=== PATIENT | male | born 1955 | race Caucasian/White ===

== ENCOUNTER 2020-06-13 10:10 | Outpatient (CLI) | payer MEDICARE, MEDICAID, SELFPAY ==
--- NOTE | ~2020-06-13 | XR_ITS ---
EXAMINATION: XR chest 2V EXAM DATE: 06/13/2020 10:46 INDICATION: CHEST PAIN with breathing in, SOB on L side, hx asthma, COPD . TECHNIQUE: Frontal and lateral projections of the chest obtained and reviewed. Comparison is made to prior examination from 03/13/2013. FINDINGS: The lungs are clear. There are no pleural effusions. The cardiomediastinal silhouette is within normal limits. There is no pneumothorax suspected. The bones and soft tissues are unremarkab le. IMPRESSION: No acute cardiopulmonary findings. Reviewed, dictated and finalized at location A. [employer]
== END 2020-06-13 10:11 | disposition home or self-care (01) ==
PROVIDERS: PCP Internal Medicine; Visit Provider Internal Medicine
DX: R07.9 Chest pain, unspecified (principal)
CPT/HCPCS: 71046

== ENCOUNTER 2024-01-15 03:57 | Emergency (ER) | payer OTHER, SELFPAY ==
--- NOTE | ~2024-01-15 | XR_ITS ---
XR hand LT min 3V DATE: 01/15/2024 04:11 INDICATION: Left hand injury. Pain at second-fourth metacarpophalangeal joints TECHNIQUE: 3 views COMPARISON: None FINDINGS: There is soft tissue swelling at a proximal aspect of the second through fourth digits. No fracture or dislocation, periosteal reaction or bone destruction is detected. IMPRESSION: Soft tissue swelling of second through fourth digits Reviewed, dictated and finalized at location A.
[2024-01-15 04:00] VITALS: BP 193/122; PULSE 64; RESP 20; TEMP 36.6; O2SAT 100
--- NOTE | 2024-01-15 04:05 | ED.UPPEXIN ---
HPI - Extremity Injury (Upper) General Chief Complaint: Extremity Injury, Upper Stated Complaint: Left hand Injury Time Seen by Provider: 01/15/24 04:00 Source: patient Mode of arrival: ambulatory Limitations: no limitations History of Present Illness HPI narrative: patient is a 60-year-old male with significant past medical history that presents today with a left hand pain. Patient states that he fell into a wall on his hand. States has been hurting ever since it is erythematous and swollen on left hand. He does have so have a history of gout flare-ups as and takes allopurinol for this. It does resemble some cellulitis also could be a gout flare, or a possible fracture of the left hand. MD complaint: injury to: left Onset (ago): day(s) Other Extremity Injury: Left: hand Handedness: right Place: home Severity: mild Severity scale (1-10): 6 Relieving factors: none Exacerbating factors: movement of extremity Context: fall and direct blow Associated symptoms: denies other symptoms Related Data Home Medications Medication Instructions Recorded Confirmed Unable to Obtain Home Medications 01/15/24 01/15/24 Allergies Allergy/AdvReac Type Severity Reaction Status Date / Time No Known Allergies Allergy Unknown Unverified 10/29/21 13:24 Review of Systems Review of Systems: All systems reviewed & are unremarkable except as noted in HPI and below Constitutional: Constitutional: Reports as per HPI Eyes: Eyes: Reports no additional eye complaints ENT: Reports system reviewed and no additional complaints, except as documented Cardiovascular: Cardiovascular: Reports no additional cardiovascular complaints Respiratory: Respiratory: Reports no additional respiratory complaints Gastrointestinal: Gastrointestinal: Reports no additional gastrointestinal complaints Musculoskeletal: Musculoskeletal: Reports arthralgias and Reports joint swelling Comments: Left hand Integumentary/Breasts: Skin/Breast: Reports system reviewed and no additional complaints, except as docu Neurologic: Reports system reviewed and no additional complaints, except as documented Psychiatric: Psychiatric: Reports no additional psychiatric complaints Endocrine: Endocrine: Reports no additional endocrine complaints Hematologic/Lymphatic: Hematologic/Lymphatic: Reports no additional hematologic/lymphatic complaints Allergic/Immunologic: Allergic/Immunologic: Reports no additional allergic/immunologic complaints Exam Const: General: healthy appearing Nutritional Appearance: well nourished Orientation/consciousness: patient oriented x3 HENMT: Head: normal to inspection Ears: external ears normal Face/Nose/Sinus: Normal external nose present Face and sinus: normal facial exam Eyes: Conjunctivae: conjunctivae normal Pupils: Equal, round and reactive pupils present EOM: EOMs intact bilaterally Neck: Neck: normal visual inspection Chest: Chest palpation & inspection: normal inspection of the chest Resp: Effort & Inspection: normal respiratory effort Auscultation: clear to auscultation bilaterally Cardio: Rate: regular rate Rhythm: regular rhythm GI: GI Palp: Yes Soft to palpation Back/Spine/Pelvis: Back: no CVA tenderness Skin: Other: left hand erythematous and edematous Neuro: General: patient oriented x3 Cranial nerves: Yes Nystagmus not present Speech: normal speech Extrem: Other: left hand erythematous edematous Psych: Mental Status: mental status grossly normal Affect: normal affect Attitude: cooperative Course Reevaluation(s) Reevaluation #1: Patient slightly improved after getting the steroid and Toradol an antibiotic. He does not think this is a gout flare because he has had gout flare-ups and is big toe many times and does feel as this feels different. X-ray did not show any signs of fractures. This most likely than cellulitis. His blood pressure was very high cavum clonidine 0.2 mg
[2024-01-15] MEDS: cloNIDine HCL 0.2 MG TABLET PO (04:12)
[2024-01-15] MEDS: DOXYCYCLINE HYCLATE 100 MG TABLET PO (04:12)
[2024-01-15] MEDS: KETOROLAC (*BKC) 60 MG/2 ML VIAL IM (04:13)
[2024-01-15 04:33] VITALS: BP 189/120; PULSE 78; RESP 18; O2SAT 95
--- NOTE | 2024-01-15 04:33 | PC.NURSE ---
Explained and educated pt on his High BP and need for f/u and need for BP medication. Pt thought he was on BP med but none listed on his med list. Explained need to speak w/ his FMD about BP. Pt understands instruction on f/u.
[2024-01-15 04:39] VITALS: BP 189/120; PULSE 68
[2024-01-15 05:00] VITALS: BP 163/116; PULSE 78; RESP 18; O2SAT 98
[2024-01-15] MEDS: cloNIDine HCL 0.1 MG TABLET PO (05:03)
[2024-01-15 05:38] VITALS: BP 135/95; PULSE 68
[2024-01-15 05:42] VITALS: BP 135/100; PULSE 72; RESP 20; TEMP 36.6; O2SAT 99
== END 2024-01-15 05:42 | disposition home or self-care (01) ==
PROVIDERS: Emergency Provider Family Medicine
DX: L03.114 Cellulitis of left upper limb (principal); M10.9 Gout, unspecified; W18.39XA Other fall on same level, initial encounter
CPT/HCPCS: 73130; 96372; 99283; A9270; J1885